=== PATIENT | female | born 1965 | race Caucasian/White ===

== ENCOUNTER → 2017-02-11 | Outpatient (CLI) | payer BC ==
--- NOTE | 2017-02-11 08:48 | Diagnostic Imaging Report ---
CLINICAL INDICATION: Patient with elevated TSH. COMPARISONS: None. FINDINGS: THYROID NODULES: There is a 1.0 cm x 0.9 cm x 1.6 cm heterogeneous isoechoic nodule within the posterior mid to inferior aspect of the right thyroid gland. There is no significant central Doppler flow within this area. THYROID GLAND: There is heterogeneity of the thyroid gland parenchyma. Otherwise, besides the thyroid nodules, the thyroid gland has normal size, and shape. The right lobe measures 5.2 cm x 1.6 cm x 1.7 cm and the left lobe measures 4.0 cm x 1.5 cm x 1.7 cm in their three dimensions. ISTHMUS: The isthmus is unremarkable and measures 4 mm in thickness. IMPRESSION: 1: There is a 16 mm heterogeneous isoechoic nodule within the mid to inferior aspect of the right thyroid gland with no significant central Doppler flow. This nodule has no significant concerning features. Given its size, follow up thyroid ultrasound in 6 months is suggested to evaluate for stability. 2: Heterogeneous thyroid gland parenchyma. Dictated by: Dictated on workstation # [id number]
== END ==
LOC: RAD 07:56
PROVIDERS: ATTEND Family Medicine
DX: E04.1 Nontoxic single thyroid nodule (principal); R94.6 Abnormal results of thyroid function studies
CPT/HCPCS: 76536

== ENCOUNTER 2021-05-30 00:35 | Emergency (ER) | payer BC ==
[~2021-05-30] VITALS: Ht 165.1 cm; Wt 110.0 kg
--- NOTE | 2021-05-30 00:53 | ED Chest Pain ---
General Stated Complaint: CP,NAUSEA Source: patient History of Present Illness Date Seen by Provider: May 30, 2021 Time Seen by Provider: 00:42 Initial Comments PT ARRIVES VIA POV FROM HOME C/O CHEST PAIN THAT WOKE HER UP AROUND 2315--WAS FINE WHEN SHE WENT TO SLEEP AROUND 2230 PAIN IS ON RIGHT SIDE OF CHEST/JUST BELOW-UNDER RIGHT BREAST AND RADIATES TO MID BACK PAIN IS CONSTANT NOTHING WORSENS OR IMPROVES PAIN NO SHORTNESS OF BREATH MILD NAUSEA, NO VOMITING NO SWEATS NO PALPITATIONS NO DIZZINESS OR SYNCOPE NO SWELLING IN LEGS/FEET OR PAIN IN CALVES NO FEVER OR RECENT ILLNESS NO COUGH NO HISTORY OF SIMILAR DENIES ANY MEDICAL PROBLEMS OTHER THAN HYPOTHYROIDISM, BUT DOES NOT TAKE MEDICATION FOR IT DRANK 1/2 BEER TONIGHT, DOES NOT DRINK ON REGULAR BASIS NO LIFTING OR UNUSUAL ACTIVITY PT HAD BOTH MODERNA COVID-19 VACCINES. LAST ONE IN DECEMBER 2020 PCP: DR. RIVERS--HAS NOT SEEN IN OVER A YEAR Allergies and Home Medications Allergies Coded Allergies: No Known Drug Allergies (Unverified , 05/30/21) Patient Home Medication List Home Medication List Reviewed: Yes Review of Systems Review of Systems Constitutional: no symptoms reported EENTM: No Symptoms Reported Respiratory: No Symptoms Reported Cardiovascular: See HPI, Chest Pain Gastrointestinal: See HPI; Denies Abdominal Pain; Nausea Genitourinary: No Symptoms Reported Musculoskeletal: see HPI, back pain Skin: no symptoms reported Psychiatric/Neurological: No Symptoms Reported Endocrine: No Symptoms Reported Hematologic/Lymphatic: No Symptoms Reported Past Jakvibr-Vuncjh-Ditqit Hx Patient Social History Tobacco Use?: No Substance use?: No Alcohol Use?: Yes Alcohol Frequency: Once in a while Past Medical History Surgery/Hospitalization HX: X 2 Surgeries: Yes Section, Tubal Ligation Respiratory: No Cardiac: No Neurological: No Genitourinary: No Gastrointestinal: No Musculoskeletal: No Endocrine: Yes (DOES NOT TAKE THYROID MEDICATION; OBESITY) Hypothyroidsim HEENT: No Cancer: No Psychosocial: No Integumentary: No Blood Disorders: No Physical Exam Vital Signs Vital Signs - First Documented 05/30/21 00:51 Temp 36.0 Pulse 66 Resp 18 B/P (MAP) 174/96 (122) Pulse Ox 96 O2 Delivery Room Air Capillary Refill : Height, Weight, BMI Height: '" Weight: lbs. oz. kg; BMI Method: General Appearance: No Apparent Distress, WD/WN, Obese Neck: Full Range of Motion, Normal Inspection, Non Tender, Supple; No Carotid Bruit, No JVD Respiratory: Chest Non Tender, Normal Breath Sounds, No Accessory Muscle Use, No Respiratory Distress Cardiovascular: Regular Rate, Rhythm, No Edema, No JVD, No Murmur, Normal Peripheral Pulses Gastrointestinal: Normal Bowel Sounds, No Organomegaly, No Pulsatile Mass, Non Tender, Soft Extremity: Normal Capillary Refill, Normal Inspection, Normal Range of Motion, Non Tender, No Calf Tenderness, No Pedal Edema Neurologic/Psychiatric: Alert, Oriented x3, No Motor/Sensory Deficits, Normal Mood/Affect, operating room manager II-XII Norm as Tested Skin: Normal Color, Warm/Dry; No Rash Progress/Results/Core Measures Results/Orders Lab Results Laboratory Tests Test 05/30/21 00:44 05/30/21 03:40 Range/Units White Blood Count 8.1 4.3-11.0 10^3/uL Red Blood Count 4.59 3.80-5.11 10^6/uL Hemoglobin 12.5 11.5-16.0 g/dL Hematocrit 39 35-52 % Mean Corpuscular Volume 86 80-99 fL Mean Corpuscular Hemoglobin 27 25-34 pg Mean Corpuscular Hemoglobin Concent 32 32-36 g/dL Red Cell Distribution Width 16.1 H 10.0-14.5 % Platelet Count 360 130-400 10^3/uL Mean Platelet Volume 8.0 L 9.0-12.2 fL Immature Granulocyte % (Auto) 0 % Neutrophils (%) (Auto) 40 L 42-75 % Lymphocytes (%) (Auto) 42 12-44 % Monocytes (%) (Auto) 12 0-12 % Eosinophils (%) (Auto) 5 0-10 % Basophils (%) (Auto) 1 0-10 % Neutrophils # (Auto) 3.2 1.8-7.8 10^3/uL Lymphocytes # (Auto) 3.4 1.0-4.0 10^3/uL Monocytes # (Auto) 1.0 0.0-1.0 10^3/uL Eosinophils # (Auto) 0.4 H 0.0-0.3 10^3/uL Basophils # (Auto) 0.1 0.0-0.1 10^3/uL Immature Granulocyte # (Auto) 0.0 0.0-0.1 10^3/uL Prothrombin Time 13.1 12.2-14.7 SEC INR Comment 1.0 0.8-1.4 Activated Partial Thromboplast Time 28 24-35 SEC D-Dimer 0.51 H 0.00-0.49 UG/ML Sodium Level 140 135-145 MMOL/L Potassium Level 3.6 3.6-5.0 MMOL/L Chloride Level 104 98-107 MMOL/L Carbon Dioxide Level 25 21-32 MMOL/L Anion Gap 11 5-14 MMOL/L Blood Urea Nitrogen 16 7-18 MG/DL Creatinine 0.92 0.60-1.30 MG/DL Estimat Glomerular Filtration Rate 63 BUN/Creatinine Ratio 17 Glucose Level 104 70-105 MG/DL Calcium Level 9.2 8.5-10.1 MG/DL Corrected Calcium 9.3 8.5-10.1 MG/DL Magnesium Level 2.2 1.6-2.4 MG/DL Total Bilirubin 0.3 0.1-1.0 MG/DL Aspartate Amino Transf (AST/SGOT) 25 5-34 U/L Alanine Aminotransferase (ALT/SGPT) 30 0-55 U/L Alkaline Phosphatase 81 40-136 U/L Total Creatine Kinase 154 29-168 U/L Creatine Kinase MB 2.0 <6.6 NG/ML Myoglobin 55.0 10.0-92.0 NG/ML Troponin I < 0.028 < 0.028 <0.028 NG/ML B-Type Natriuretic Peptide 38.8 <100.0 PG/ML Total Protein 7.8 6.4-8.2 GM/DL Albumin 3.9 3.2-4.5 GM/DL Amylase Level 77 25-125 U/L Lipase 76 8-78 U/L Free Thyroxine 0.71 0.70-1.48 NG/DL TSH Banks Testing 18.41 H 0.35-4.94 UIU/ML Serum Alcohol < 10 <10 MG/DL My Orders Orders - PORSHA MAXWELL DO Cbc With Automated Diff (05/30/21 00:43) Magnesium (05/30/21 00:43) Chest 1 View, Ap/Pa Only (05/30/21 00:43) Ekg Tracing (05/30/21 00:43) Comprehensive Metabolic Panel (05/30/21 00:43) Myoglobin Serum (05/30/21 00:43) Protime With Inr (05/30/21 00:43) Partial Thromboplastin Time (05/30/21 00:43) O2 (05/30/21 00:43) Monitor-Rhythm Ecg Trace Only (05/30/21 00:43) Ed Iv/Invasive Line Start (05/30/21 00:43) Creatine Kinase (05/30/21 00:43) Creatine Kinase Mb (05/30/21 00:43) Lipase (05/30/21 00:43) Amylase (05/30/21 00:43) BNP (05/30/21 00:43) Troponin I (05/30/21 00:43) Alcohol (05/30/21 00:48) Thyroid Analyzer (05/30/21 00:48) Aspirin Chewable Tablet (Baby Aspirin Ch (05/30/21 01:00) Nitroglycerin 0.4 Mg Btl 25's (Nitrostat (05/30/21 01:00) Fibrin Degradation Products (05/30/21 00:44) Aspirin Chewable Tablet (Baby Aspirin Ch (05/30/21 00:56) Nitroglycerin 0.4 Mg Btl 25's (Nitrostat (05/30/21 00:56) Free T4 (Free Thyroxine) (05/30/21 00:44) Troponin I (05/30/21 03:40) Ekg Tracing (05/30/21 03:41) Medications Given in ED Current Medications Medications Dose Ordered Sig/Serge Route Start Time Stop Time Status Last Admin Dose Admin Aspirin 324 mg ONCE ONCE PO 05/30/21 01:00 05/30/21 01:02 DC 05/30/21 00:58 324 MG Nitroglycerin 1 TAB Q 5 MIN X 3 NEEDED PRN SL 05/30/21 01:00 05/30/21 01:04 0.4 MG Vital Signs/I&O 05/30/21 00:51 Temp 36.0 Pulse 66 Resp 18 B/P (MAP) 174/96 (122) Pulse Ox 96 O2 Delivery Room Air Progress Progress Note : Progress Note GIVEN ASPIRIN GIVEN NTG X 1 PAIN IS GONE AND BP DOWN TO 120'S/70'S--PT STATES HER NORMAL BP IS 120'S/70'S-80'S--STATES SHE DONATES BLOOD ON A REGULAR BASIS AND BP IS ALWAYS CHECKED AND IS ALWAYS NORMAL. WILL DO 3 HOUR REPEAT EKG AND TROPONIN REPEAT EKG NORMAL/UNCHANGED REPEAT TROPONIN IS STILL NEGATIVE NO RETURN OF CHEST PAIN OR ANY OTHER SYMPTOMS FOR REMAINDER OF ER STAY BP REMAINED IN 120'S/70'S FOR REMAINDER OF ER STAY Initial ECG Impression Date: May 30, 2021 Initial ECG Impression Time: 00:44 Initial ECG Rate: 64 Initial ECG Rhythm: Normal Sinus Initial ECG Comparisson: No Previous ECG Available EKG : EKG Time: 03:33 Rate: 56 Rhythm: Normal Sinus Diagnostic Imaging Comments CXR--NO ACUTE PROCESS, PENDING RADIOLOGIST REVIEW Reviewed: Reviewed by Me Departure Impression Primary Impression: Chest pain Additional Impressions: Labile hypertension Elevated TSH Disposition: HOME, SELF-CARE Condition: Improved Departure-Patient Inst. Decision time for Depature: 04:15 Referrals: ERNIE RIVERS DO (PCP/Family) Primary Care Physician Patient Instructions: Chest Pain (DC), High Blood Pressure (DC), DASH Diet, Thyroid Stimulating Hormone Test Add. Discharge Instructions: TAKE 81 MG ASPIRIN DAILY LOW SODIUM DIET FOLLOW UP WITH DR. RIVERS ON TUESDAY FOR FURTHER CARE RETURN TO ER IF SYMPTOMS RETURN PORSHA MAXWELL DO May 30, 2021 00:53
[2021-05-30] MEDS ORDERED: NITROGLYCERIN 0.4 MG SL TABS BTL 25'S SL ONE (00:56)
[2021-05-30] MEDS ORDERED: ASPIRIN 81 MG CHEW (CHILDREN'S ASA) ONE (00:56)
[2021-05-30 00:57] LABS: BASOPHILS # (AUTO) 0.1 10^3/uL (0.0-0.1); BASOPHILS % (AUTO) 1 % (0-10); EOSINOPHILS # (AUTO) 0.4 10^3/uL (0.0-0.3); EOSINOPHILS % (AUTO) 5 % (0-10); HEMATOCRIT 39 % (35-52); HEMOGLOBIN 12.5 g/dL (11.5-16.0); LYMPHOCYTES # (AUTO) 3.4 10^3/uL (1.0-4.0); LYMPHOCYTES % (AUTO) 42 % (12-44); MEAN CORPUSCULAR HEMOGLOBIN 27 pg (25-34); MEAN CORPUSCULAR HGB CONC 32 g/dL (32-36); MEAN CORPUSCULAR VOLUME 86 fL (80-99); MONOCYTES % (AUTO) 12 % (0-12); NEUTROPHILS # (AUTO) 3.2 10^3/uL (1.8-7.8); NEUTROPHILS % (AUTO) 40 % (42-75); PLATELET COUNT 360 10^3/uL (130-400); WHITE BLOOD COUNT 8.1 10^3/uL (4.3-11.0)
[2021-05-30] MEDS: NITROGLYCERIN 0.4 MG SL TABS BTL 25'S SL PRN ×2 (00:59→01:04)
[2021-05-30] MEDS ORDERED: ASPIRIN 81 MG CHEW (CHILDREN'S ASA) PO ONE (01:00)
[2021-05-30 01:08] LABS: ALBUMIN 3.9 GM/DL (3.2-4.5); POTASSIUM 3.6 MMOL/L (3.6-5.0)
[2021-05-30 01:09] LABS: CALCIUM 9.2 MG/DL (8.5-10.1); FIBRIN DEGRADATION PRODUCTS 0.51 UG/ML (0.00-0.49); PROTHROMBIN TIME PATIENT 13.1 SEC (12.2-14.7)
[2021-05-30 01:11] LABS: TOTAL PROTEIN 7.8 GM/DL (6.4-8.2)
[2021-05-30 01:12] LABS: BILIRUBIN,TOTAL 0.3 MG/DL (0.1-1.0)
[2021-05-30 01:14] LABS: CREATININE SERUM 0.92 MG/DL (0.60-1.30)
[2021-05-30 01:17] LABS: MAGNESIUM 2.2 MG/DL (1.6-2.4)
[2021-05-30 01:38] LABS: TSH (THYROID ANALYZER) 18.41 UIU/ML (0.35-4.94)
[2021-05-30 02:27] LABS: FREE T4 (FREE THYROXINE) 0.71 NG/DL (0.70-1.48)
[2021-05-30 04:26] VITALS: BP 131/73
--- NOTE | 2021-05-30 07:06 | Diagnostic Imaging Report ---
INDICATION: Chest pain. TECHNIQUE: Single view chest 1:01 AM. CORRELATION STUDY: None FINDINGS: The heart size, mediastinal configuration and pulmonary vascularity are within normal limits. The lungs are clear with no consolidating infiltrate. There is no significant effusion or pneumothorax. IMPRESSION: 1. Negative appearing portable chest. Dictated by: Dictated on workstation # [id number]
== END 2021-05-30 04:20 | disposition home or self-care (01) ==
LOC: EDUNIT# 00:35 → ER 00:39
DX: R07.9 Chest pain, unspecified (principal); R09.89 Other specified symptoms and signs involving the circulatory and respiratory systems; R94.6 Abnormal results of thyroid function studies; E66.9 Obesity, unspecified
CPT/HCPCS: 71045; 80053; 82150; 82550; 82553; 83690; 83735; 83874; 83880; 84439; 84443; 84484; 85025; 85379; 85610; 85730; 93005; 93041; 99284; G0480; 36415; 80320